=== PATIENT | female | born 1960 | race Caucasian/White ===

== ENCOUNTER → 2016-05-21 | Outpatient (CLI) | payer OTHER ==
--- NOTE | 2016-05-21 15:33 | DIAGNOSTIC IMAGING REPORT ---
LEFT KNEE INCLUDING BILATERAL STANDING AP VIEWS (4 VIEWS) CLINICAL HISTORY: Left knee pain COMPARISON: None. DISCUSSION: No fractures are visualized. There are no erosive or destructive changes. The joint space appears well-preserved for age. IMPRESSION: Normal conventional radiographic evaluation the left knee for age Electronically signed by: Jeison Reyes M.D. 05/21/2016 3:31 PM Dictated Date/Time: 05/21/2016 3:30 PM
== END | disposition home or self-care (01) ==
LOC: C.RDSM 13:41
PROVIDERS: ATTEND Family Medicine
DX: M25.562 Pain in left knee (principal)